=== PATIENT | male | born 1965 | race Caucasian/White ===

== ENCOUNTER 2018-05-05 19:22 | Emergency (ER) | payer OTHER ==
[2018-05-05 20:22] LABS: ABS Basophils 0.1 10^3/ul (0-0.2); ABS Eosinophils 0.1 10^3/ul (0-0.6); ABS Lymphocytes 2.5 10^3/ul (1.0-4.8); ABS Monocytes 0.9 10^3/ul (0-0.8); ABS Neutrophils 9.8 10^3/ul (1.5-7.7); ABS Nucleated RBC 0 10^3/ul; Eosinophil % 0.8 % (0-6); Hematocrit 43 % (42-52); Hemoglobin 14.6 g/dl (14.0-18.0); Lymphocyte % 18.7 % (25-47); Mean Corpuscular HGB Conc 34 g/dl (31-36); Mean Corpuscular Hemoglobin 32 pg (27-31); Mean Corpuscular Volume 94 fL (80-94); Mean Platelet Volume 7.7 um3 (7.4-10.4); Nucleated Red Blood Cells % 0.1; Platelet Count 233 10^3/ul (150-450); Red Blood Count 4.56 10^6/ul (4.00-5.40); Red Cell Distribution Width 14 % (10.5-15); White Blood Count 13.4 10^3/ul (3.5-10.8)
[2018-05-05 20:39] LABS: Urine Appearance Cloudy; Urine Blood Negative (Negative); Urine Color Amber; Urine Ketones Trace (Negative); Urine Protein Negative (Negative); Urine Specific Gravity 1.026 (1.010-1.030); Urine Urobilinogen Positive (Negative); Urine White Blood Cell 3+(>20/hpf) (Absent)
[2018-05-05 20:40] LABS: Urine Red Blood Cell 1+(3-5/hpf) (Absent)
--- NOTE | 2018-05-05 21:01 | ED ---
Psychiatric Complaint - HPI Summary HPI Summary: This is scribe Yossi Attebjohn documenting for attending Jerrica Lutz. Patient is a 52 y/o M presents to ED with psychiatric complaint. Associated Sx: SI, with a plan. Denies: fever. Patient reports having ongoing issues with his girlfriend and he snapped today. He went over to a friends house with a gun and bullet with the intentions of committing suicide. PMHx: DM, anxiety. PSHx: Arthroscopic knee surgery, appendectomy. I, Dr. Lutz, personally performed the services described in this documentation as scribed in my presence and it is both accurate and complete. - History Of Current Complaint Chief Complaint: EDMentalHealth Time Seen by Provider: 05/05/18 19:43 Hx Obtained From: Patient Onset/Duration: Gradual Onset Aggravating Factor(s): Recent Stress Has Suicidal: Reports: Thoughts, With A Plan, Demonstrates Gesture - Allergies/Home Medications Allergies/Adverse Reactions: Allergies Allergy/AdvReac Type Severity Reaction Status Date / Time bee venom protein (honey bee) Allergy Swelling Verified 05/05/18 19:28 PMH/Surg Hx/FS Hx/Imm Hx Endocrine/Hematology History: Reports: Hx Diabetes Psychiatric History: Reports: Hx Anxiety - Surgical History Surgery Procedure, Year, and Place: APPENDECTOMY Infectious Disease History: No Infectious Disease History: Denies: Traveled Outside the [place] in Last 30 Days - Family History Known Family History: Positive: Hypertension, Diabetes Negative: Cardiac Disease - Social History Alcohol Use: Occasionally Substance Use Type: Reports: None Smoking Status (MU): Light Every Day Tobacco Smoker Review of Systems Negative: Fever Positive: Other - SI, with a plan All Other Systems Reviewed And Are Negative: Yes Physical Exam - Summary Physical Exam Summary: VITAL SIGNS: Reviewed. GENERAL: Patient is a well-developed and nourished Male who is lying comfortable in the stretcher. Patient is not in any acute respiratory distress. HEAD AND FACE: No signs of trauma. No ecchymosis, hematomas or skull depressions. No sinus tenderness. EYES: PERRLA, EOMI x 2, No injected conjunctiva, no nystagmus. EARS: Hearing grossly intact. Ear canals and tympanic membranes are within normal limits. MOUTH: Oropharynx within normal limits. NECK: Supple, trachea is midline, no adenopathy, no JVD, no carotid bruit, no c- spine tenderness, neck with full ROM. CHEST: Symmetric, no tenderness at palpation LUNGS: Clear to auscultation bilaterally. No wheezing or crackles. CVS: Regular rate and rhythm, S1 and S2 present, no murmurs or gallops appreciated. ABDOMEN: Soft, non-tender. No signs of distention. No rebound no guarding, and no masses palpated. Bowel sounds are normal. EXTREMITIES: FROM in all major joints, no edema, no cyanosis or clubbing. NEURO: Alert and oriented x 3. No acute neurological deficits. Speech is normal and follows commands. SKIN: Dry and warm Triage Information Reviewed: Yes Vital Signs On Initial Exam: Initial Vitals Temp Pulse Resp BP Pulse Ox 99.5 F 96 16 155/79 97 05/05/18 19:25 05/05/18 19:25 05/05/18 19:25 05/05/18 19:25 05/05/18 19:25 Vital Signs Reviewed: Yes Diagnostics - Vital Signs Vital Signs Temp Pulse Resp BP Pulse Ox 05/05/18 19:25 99.5 F 96 16 155/79 97 - Laboratory Lab Results: Lab Results 05/05/18 05/05/18 05/05/18 Range/Units 20:12 20:13 20:13 WBC 13.4 H (3.5-10.8) 10^3/ul RBC 4.56 (4.00-5.40) 10^6/ul Hgb 14.6 (14.0-18.0) g/dl Hct 43 (42-52) % MCV 94 (80-94) fL MCH 32 H (27-31) pg MCHC 34 (31-36) g/dl RDW 14 (10.5-15) % Plt Count 233 (150-450) 10^3/ul MPV 7.7 (7.4-10.4) um3 Neut % (Auto) 73.6 (38-83) % Lymph % (Auto) 18.7 L (25-47) % [place] % (Auto) 6.4 (0-7) % Eos % (Auto) 0.8 (0-6) % Baso % (Auto) 0.5 (0-2) % Absolute Neuts (auto) 9.8 H (1.5-7.7) 10^3/ul Absolute Lymphs (auto) 2.5 (1.0-4.8) 10^3/ul Absolute Monos (auto) 0.9 H (0-0.8) 10^3/ul Absolute Eos (auto) 0.1 (0-0.6) 10^3/ul Absolute Basos (auto) 0.1 (0-0.2) 10^3/ul Absolute Nucleated RBC 0 10^3/ul Nucleated RBC % 0.1 Sodium 139 (135-145) mmol/L Potassium 3.8 (3.5-5.0) mmol/L Chloride 107 (101-111) mmol/L Carbon Dioxide 26 (22-32) mmol/L Anion Gap 6 (2-11) mmol/L BUN 12 (6-24) mg/dL Creatinine 1.21 H (0.67-1.17) mg/dL Est GFR ( Amer) 76.2 (>60) Est GFR (Non-Af Amer) 63.0 (>60) BUN/Creatinine Ratio 9.9 (8-20) Glucose 92 (70-100) mg/dL Calcium 9.4 (8.6-10.3) mg/dL Total Bilirubin 0.60 (0.2-1.0) mg/dL AST 14 (13-39) U/L ALT 12 (7-52) U/L Alkaline Phosphatase 62 (34-104) U/L Total Protein 6.8 (6.4-8.9) g/dL Albumin 4.1 (3.2-5.2) g/dL Globulin 2.7 (2-4) g/dL Albumin/Globulin Ratio 1.5 (1-3) TSH Pending Urine Color Vi Urine Appearance Cloudy Urine pH 5.0 (5-9) Ur Specific Craig 1.026 (1.010-1.030) Urine Protein Negative (Negative) Urine Ketones Trace A (Negative) Urine Blood Negative (Negative) Urine Nitrate Negative (Negative) Urine Bilirubin Negative (Negative) Urine Urobilinogen Positive A (Negative) Ur Leukocyte Esterase 2+ A (Negative) Urine WBC (Auto) 3+(>20/hpf) A (Absent) Urine RBC (Auto) 1+(3-5/hpf) A (Absent) Ur Squamous Epith Cells Present A (Absent) Calcium Oxalate Crystal Present A (Absent) Urine Bacteria Absent (Absent) Hyaline Casts Present A (Absent) Urine Glucose Negative (Negative) Salicylates Pending Acetaminophen Pending Serum Alcohol Pending Result Diagrams: 05/05/18 20:13 05/05/18 20:13 Lab Statement: Any lab studies that have been ordered have been reviewed, and results considered in the medical decision making process. Course/Dx - Course Assessment/Plan: Blood work without any significant abnormality. Urinalysis contaminated therefore we will send for urine cultures. She is medically clear. Patient is awaiting for mental health evaluation. Patient will be signed out to Dr. Heard was the next ER attending at shift change. - Differential Dx/Clinical Impression Differential Diagnosis/HQI/PQRI: Positive: Depression Provider Diagnosis: Depression, Suicidal ideation Discharge - Sign-Out/Discharge Documenting (check all that apply): Sign-Out Patient Signing out patient TO: Saadia Heard - Discharge Plan Referrals: No Primary Care Phys,NOPCP [Primary Care Provider] -
--- NOTE | 2018-05-06 01:35 | ED ---
Progress - Progress Note Progress Note: Pt was signed out from Dr. Lutz upon shift change pending MHE. Per MHE, pt is not currently feeling suicidal. Patient had already scheduled a therapy appointment for 05/09/2018. Family is okay with the patient going home and is supportive. Patient is future oriented - Consult/PCP Time Called: 20:00 Course/Dx - Course Course Of Treatment: Pt was signed out from Dr. Lutz upon shift change pending MHE. Per MHE, pt is not currently feeling suicidal. Patient had already scheduled a therapy appointment for 05/09/2018. Family is okay with the patient going home and is supportive. Patient is future oriented. Pt will be discharged with follow up with therapist. Patient is agreeable with this plan. - Diagnoses Provider Diagnoses: Depression, Suicidal ideation Discharge - Sign-Out/Discharge Documenting (check all that apply): Patient Departure - Discharge - Discharge Plan Condition: Stable Disposition: HOME Referrals: Migdalia Phelan [Other] (Appointment on Tuesday05/09/18 at 4pm. ) No Primary Care Phys,NOPCP [Primary Care Provider] - (Follow up as needed with [facility]) Attestations Scribe Attestation: This is scribe documenting for attending Saadia Heard MD. User Type: Provider with Scribe Provider Attestation: The documentation recorded by the scribe accurately reflects the service I personally performed and the decisions made by me.
[2018-05-06 01:39] VITALS: BP 104/70
== END 2018-05-06 02:00 | disposition home or self-care (01) ==
LOC: ED 19:22
DX: F32.9 Major depressive disorder, single episode, unspecified (principal); R45.851 Suicidal ideations; Z91.030 Bee allergy status; F17.200 Nicotine dependence, unspecified, uncomplicated
CPT/HCPCS: 36415; 80053; 80307; 80320; 80329; 81003; 81015; 84443; 85025; 87086; 99285; G0480

== ENCOUNTER 2024-01-10 09:00 | Observation (INO) ==
[~2024-01-10 09:00] MED LIST: Naloxone 0.4 mg VIAL 0.4 mg/ml 1 ml VIAL IV PRN; Prochlorperazine 5 mg/ml 2 ml VIAL (10 mg) IV PRN
[2024-01-10] MEDS ORDERED: Tranexamic Acid 1 GM/100ML BAG 2,000 MG/200 ML BAG IV ONE (13:11)
[2024-01-10] MEDS ORDERED: ceFAZolin 2 GM PREMIX 2 GM/50 ML BAG ONE (13:11)
[2024-01-10 13:40] LABS: Rapid COVID-19 Molecular Undetected (Undetected)
[2024-01-10] MEDS ORDERED: Midazolam 2 mg/2 ml VIAL 1 mg/ml 2 ml VIAL (2 mg) ONE ×2 (13:45→14:47)
[2024-01-10] MEDS ORDERED: fentaNYL 100 mcg/2 ml 50 MCG/ML VIAL ONE ×5 (13:52→19:33)
[2024-01-10] MEDS ORDERED: Propofol 10 MG/ML 20 ML BTL ONE ×2 (13:53→13:57)
[2024-01-10] MEDS ORDERED: Lidocaine 2% PF 5 ML VIAL ONE (13:53)
[2024-01-10] MEDS ORDERED: Glycopyrrolate IV 0.2 MG/ML 1 ML VIAL ONE (13:54)
[2024-01-10] MEDS ORDERED: Ondansetron 4 mg VIAL 2 MG/ML 2 ml VIAL ONE (13:54)
[2024-01-10] MEDS ORDERED: ROPIVACAINE 5 MG/ML 30 ML BTL (0.5%) ONE ×2 (14:47→15:07)
[2024-01-10] MEDS ORDERED: Dexamethasone IV 4 MG/ML VIAL 1 ml VIAL ONE (14:47)
[2024-01-10] MEDS ORDERED: Lactulose 30 ml UDC PO PRN (15:28)
[2024-01-10] MEDS ORDERED: Ondansetron ODT 4 mg TAB 4 MG TAB PO PRN (15:28)
[2024-01-10] MEDS ORDERED: Morphine 2 MG/ML SYRINGE IV PRN (15:28)
[2024-01-10] MEDS ORDERED: Ondansetron 4 mg VIAL 2 MG/ML 2 ml VIAL IV PRN (15:28)
[2024-01-10] MEDS ORDERED: Magnesium Hydroxide LIQ 30 ML UDC PO PRN (15:28)
[2024-01-10] MEDS ORDERED: Metoclopramide 5 MG/ML VIAL (10 mg) ONE (16:30)
[2024-01-10] MEDS ORDERED: HYDROmorphone 0.5 MG/0.5 ML SYRINGE ONE ×2 (16:39→16:45)
[2024-01-10] MEDS ORDERED: KETAMINE HCL 10 MG/ML 20 ml VIAL (200 MG) ONE (16:41)
[2024-01-10] MEDS ORDERED: Acetaminophen IV 1 GM/100ML 1,000 MG/100 ML BAG IV ONE (17:36)
[2024-01-10] MEDS: fentaNYL 100 mcg/2 ml 50 MCG/ML VIAL IV PRN (19:00)
[2024-01-10] MEDS: Lactated Ringers 1000 ml BAG 1,000 ML IV SCH ×2 (20:52→21:30)
[2024-01-10] MEDS: Buffered Lidocaine 1% SYRIN 1 ml INTRADERM ONE (21:30)
[2024-01-10] MEDS: Magnesium Hydroxide LIQ 30 ML UDC PO SCH (21:55)
[2024-01-10] MEDS: Nicotine PATCH 21 MG/24 HR PATCH TRANSDERM SCH (21:56)
[2024-01-11] MEDS: ceFAZolin 1 GM ADVAN 1 GM in NS 0.9% 50 ML 50 ML IVPB SCH (00:14)
[2024-01-11 06:42] LABS: Hematocrit 38.6 % (38-53); Hemoglobin 13.3 g/dL (13.2-16.3); Mean Platelet Volume 7.7 fL (7.5-11.2); Platelet Count 187 10^3/uL (150-450)
[2024-01-11 07:15] LABS: Calcium 8.1 mg/dL (8.6-10.3); Creatinine, Serum 1.13 mg/dL (0.67-1.17); Potassium 4.2 mmol/L (3.5-5.0); eGFR CKD-EPI 75.3 (>60)
[2024-01-11] MEDS: Vitamin THERAPEUTIC TAB PO SCH (09:26)
[2024-01-11 14:30] VITALS: BP 118/66
== END 2024-01-11 16:05 | disposition home or self-care (01) ==
LOC: AA 12:54 → INTOOBSV 12:54 → SSU 21:00
PROVIDERS: ADMIT Orthopaedic Surgery Adult Reconstructive Orthopaedic Surgery; ATTEND Orthopaedic Surgery Adult Reconstructive Orthopaedic Surgery